=== PATIENT | female | born 1990 | race Caucasian/White ===

== ENCOUNTER 2020-08-21 13:21 | Emergency (ER) | payer OTHER, SELFPAY ==
--- NOTE | ~2020-08-21 | CT_ITS ---
EXAMINATION: CT abdomen pelvis w con DATE: 08/21/2020 20:39 INDICATION: Right lower quadrant abdominal pain TECHNIQUE: Computed tomography (CT) of the abdomen and pelvis was performed with 100 cc Omnipaque 350 intravenous contrast. Automated exposure control and iterative reconstruction technique were employe d. Exam dose: 512.09 mGy-cm total exam DLP. COMPARISON: 03/31/2011 CT abdomen pelvis FINDINGS: The lung bases are clear. Normal heart size. No pericardial or pleural effusion. There are numerous gallstones. Borderline gallbladder wall thickness. No pericholecystic fluid or str anding. No bile duct or pancreatic duct dilatation. No hepatic or pancreatic space-occupying mass lesion. Normal splenic size. Normal morphology of the adrenal glands. No renal mass lesion or urinary tract calculus or hydroureteronephrosis. The urinary bladder is unrem arkable. There is an IUD within the uterus. The uterus and adnexal areas are otherwise are unremarkab le. Normal caliber of the abdominal aorta. No intraperitoneal or retroperitoneal or pelvic mass lesion or adenopathy or ascites. Normal appendix. No bowel obstruction, bowel wall thickening, pneumatosis or intraperitoneal free air . Stable lucent area within the T12 vertebra, unchanged since 03/31/2011 and therefore consistent with benign process. No suspicious osteolytic or osteoblastic lesions. IMPRESSION: Cholelithiasis Normal appendix IUD within uterus Reviewed, dictated and finalized at [facility] Reviewed, dictated and finalized at [facility].
[2020-08-21 14:08] VITALS: BP 116/73; PULSE 103; RESP 18; TEMP 36.6; O2SAT 100
[2020-08-21 14:35] LABS: Basophils Absolute Auto 0.1 K/mm3 (0.0-0.1); Basophils Percent Auto 0.7 % (0.2-1.2); Eosinophils Absolute Auto 0.3 K/mm3 (0-0.3); Eosinophils Percent Auto 3.1 % (0-4.4); Hematocrit 40.2 % (37.0-47.0); Hemoglobin 13.8 g/dL (12.0-15.0); Immature Granulocyte Absolute 0.03 K/mm3 (0.00-0.031); Immature Granulocyte Percent A 0.4 % (0-0.5); Lymphocytes Absolute Auto 2.56 K/mm3 (0.9-3.2); Lymphocytes Percent Auto 30.3 % (18.3-44.2); Mean Corpuscular HGB Conc 34.3 g/dl (32-36); Mean Corpuscular Hemoglobin 32.8 pg (26-34); Mean Corpuscular Volume 95.5 fl (80-100); Mean Platelet Volume 10.2 fl (7.4-10.4); Monocytes Absolute Auto 0.8 K/mm3 (0.1-0.6); Monocytes Percent Auto 8.9 % (2.6-8.5); Neutrophils Absolute Auto 4.8 K/mm3 (1.3-6.7); Neutrophils Percent Auto 56.6 % (45.5-73.1); Platelet Count Result 503 k/mm3 (150-375); Red Blood Count 4.21 M/mm3 (4.2-5.4); Red Cell Distribution Width 12.1 % (11.5-14.5); White Blood Count 8.5 K/mm3 (4.5-10.0)
[2020-08-21 14:48] LABS: Alanine Aminotransferase 12 U/L (4-35); Albumin Level 4.4 g/dL (3.5-5.1); Alkaline Phosphatase 64 U/L (38-126); Anion Gap 5 mmol/L (8-16); Aspartate Amino Transferase 20 U/L (14-36); Bilirubin,Total 0.4 mg/dL (0.2-1.3); Blood Urea Nitrogen 9 mg/dL (7-17); Calcium 9.3 mg/dL (8.4-10.2); Carbon Dioxide 25 mmol/L (22-30); Chloride 109 mmol/L (98-107); Estimated CRCL calculation 144 ml/min; Estimated Glomerular Filt Rate > 60; Glucose 108 mg/dL (65-105); Lipase 51 U/L (23-300); Potassium 3.7 mmol/L (3.4-5.0); Sodium 139 mmol/L (137-145)
[2020-08-21 15:48] LABS: Add Urine Microscopic? YES; Appearance Urine Cloudy (Clear); Bilirubin Urine Negative (Negative); Blood Urine Negative (Negative); Color Urine Yellow (Yellow); Glucose Urine UA Negative (Negative); Ketones Urine Negative (Negative); Leukocyte Esterase Ur Trace LEU/UL (Negative); Nitrate Urine Negative (Negative); Protein Urine Negative (Negative); Specific Grav Ur 1.023 (1.001-1.035)
[2020-08-21 16:11] LABS: Squamous Epithelial Cell Urine Many /hpf (Few); WBC Urine 0-3 /hpf (0-3)
[2020-08-21 16:12] LABS: Bacteria Urine Trace /hpf; Calcium Oxalate Crystals Urine Present /hpf
[2020-08-21 18:48] VITALS: BP 105/72; PULSE 86; RESP 18; TEMP 36.6; O2SAT 100
--- NOTE | 2020-08-21 20:03 | ED.ABDPAIN ---
HPI - Abdominal Pain General Chief Complaint: Abdominal Pain Stated Complaint: ovarian cyst Time Seen by Provider: 08/21/20 18:51 History of Present Illness HPI narrative: Patient is a 29-year-old female who presents ER with right lower quadrant abdominal pain. Patient reports earlier today she had some discomfort that felt like an ovarian cyst rupturing. However she is developed more persistent pain higher up in her abdomen since then. No fevers or chills or sweats. No nausea or vomiting. She is concerned she may have appendicitis. She has no vaginal bleeding or vaginal discharge. She has an IUD and is not concerned about . Has not found any alleviating factors. Pain is worse with movement and palpation. Related Data Allergies Allergy/AdvReac Type Severity Reaction Status Date / Time No Known Allergies Allergy Unverified 12/15/17 05:41 Review of Systems Review of Systems: All systems reviewed & are unremarkable except as noted in HPI and below Constitutional: Constitutional: Denies chills, Denies fever(s) and Denies weakness Cardiovascular: Cardiovascular: Denies chest pain and Denies rapid heart rate Respiratory: Respiratory: Denies cough and Denies dyspnea Gastrointestinal: Gastrointestinal: Reports abdominal pain, Denies constipation, Denies diarrhea, Denies nausea and Denies vomiting Genitourinary: Genitourinary: Denies abnormal vaginal bleeding, Denies nocturia and Denies dysuria PMFSH Past Medical History Medical History (Updated 08/21/20 @ 21:14 by Clifton Naik MD) Hypothyroidism Ovarian cyst Surgical History Surgical History (Updated 08/21/20 @ 20:05 by Clifton Naik MD) No pertinent past surgical history Social History Social History (Updated 08/21/20 @ 20:06 by Clifton Naik MD) Smoking status: Never smoker Exam Narrative: Exam Narrative: GENERAL: Well-appearing, well-nourished, and in no acute distress. HEAD: Normocephalic, atraumatic. CHEST: Clear to auscultation. No respiratory distress. HEART: Regular rate and rhythm. Normal peripheral pulses. ABDOMEN: Soft, tender palpation in the right lower quadrant with mild guarding, nondistended, normal active bowel sounds. EXTREMITIES: Normal range of motion. No edema. SKIN: Warm, dry, no rash. NEURO: Alert and oriented x3. PSYCH: Normal mood and affect. Course Course Emergency Course: Patient informed of results. Resting comfortably. 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 Vital Signs Vital signs: Vital Signs Temperature 97.9 F 08/21/20 14:08 Pulse Rate 103 H 08/21/20 14:08 Respiratory Rate 18 08/21/20 14:08 Blood Pressure 116/73 08/21/20 14:08 Pulse Oximetry 100 08/21/20 14:08 Temperature 97.8 F 08/21/20 18:48 Pulse Rate 86 08/21/20 18:48 Respiratory Rate 18 08/21/20 18:48 Blood Pressure 105/72 08/21/20 18:48 Pulse Oximetry 100 08/21/20 18:48 MDM - Abdominal Pain Lab Data Result diagrams: 08/21/20 14:14 08/21/20 14:14 Labs: Lab Results 08/21/20 08/21/20 08/21/20 Range/Units 14:14 14:14 14:48 WBC 8.5 (4.5-10.0) K/mm3 RBC 4.21 (4.2-5.4) M/mm3 Hgb 13.8 (12.0-15.0) g/dL Hct 40.2 (37.0-47.0) % MCV 95.5 (80-100) fl MCH 32.8 (26-34) pg MCHC 34.3 (32-36) g/dl RDW 12.1 (11.5-14.5) % Plt Count 503 H (150-375) k/mm3 MPV 10.2 (7.4-10.4) fl Immature Gran % (Auto) 0.4 (0-0.5) % Neut % (Auto) 56.6 (45.5-73.1) % Lymph % (Auto) 30.3 (18.3-44.2) % [place] % (Auto) 8.9 H (2.6-8.5) % Eos % (Auto) 3.1 (0-4.4) % Baso % (Auto) 0.7 (0.2-1.2) % Lymph # (Auto) 2.56 (0.9-3.2) K/mm3 [place] # (Auto) 0.8 H (0.1-0.6) K/mm3 Eos # (Auto) 0.3 (0-0.3) K/mm3 Baso # (Auto) 0.1 (0.0-0.1) K/mm3 Abs Immat Gran (auto) 0.03 (0.00-0.031) K/mm3 Absolute Neuts (auto) 4.8 (
[2020-08-21 21:33] VITALS: BP 115/79; PULSE 78; RESP 14; O2SAT 100
== END 2020-08-21 21:31 | disposition home or self-care (01) ==
PROVIDERS: Emergency Provider Emergency Medicine
DX: R10.31 Right lower quadrant pain (principal); E03.9 Hypothyroidism, unspecified; Z97.5 Presence of (intrauterine) contraceptive device
CPT/HCPCS: 36415; 74177; 80053; 81001; 81025; 83690; 85025; 96374; 99284; J0131; Q9967

== ENCOUNTER 2024-01-04 21:39 | Emergency (ER) | payer BC, SELFPAY ==
--- NOTE | ~2024-01-04 | XR_ITS ---
Clinical Indication: Shortness of breath PA and lateral views of the chest: Comparison: 03/07/2016 Findings: The lungs are clear, without evidence of focal consolidation or pleural effusion. Cardiome diastinal silhouette is within normal limits. Bones and soft tissues are unremarkable. Impression: Normal chest. Reviewed, dictated and finalized at location . Impression: Normal chest.
[2024-01-04 21:47] VITALS: BP 121/75; PULSE 85; RESP 15; TEMP 36.5; O2SAT 100
== END 2024-01-05 06:08 | disposition left against medical advice (07) ==
PROVIDERS: Emergency Provider Emergency Medicine; PCP Family Medicine
DX: R06.02 Shortness of breath (principal)
CPT/HCPCS: 71046; 99199

== ENCOUNTER 2024-10-13 07:44 | Emergency (ER) | payer BC, SELFPAY ==
--- NOTE | ~2024-10-13 | XR_ITS ---
EXAMINATION: XR chest 1V portable 10/13/2024 08:35 INDICATION: Dyspnea PROCEDURE: AP portable chest COMPARISON: 01/04/2024 FINDINGS: The lungs are clear. The cardiomediastinal silhouette is within normal limits. There are no pleural effusions. There is no pneumothorax suspected. There is a left nipple ring. IMPRESSION: 1: NO ACUTE CARDIOPULMONARY DISEASE. Reviewed, dictated and finalized at location A.
[2024-10-13 07:43] VITALS: BP 119/62; PULSE 87; RESP 19; TEMP 36.8; O2SAT 99
--- NOTE | 2024-10-13 07:45 | ECG_ITS ---
Test Date: 2024-10-13 07:54:36 Measurements Intervals [place] Rate: 86 P: 26 AK: 137 QRS: 21 QRSD: 86 T: 39 QT: 391 QTc: 469 Interpretive Statements SINUS RHYTHM BASELINE ARTIFACT- I, II, III, AVR, AVL ,AVF, V1-V6 NORMAL ECG No previous ECG available for comparison Electronically Signed On 10-13-2024 08:13:34 CDT by Arturo Esquivel D.O.
[2024-10-13 07:50] VITALS: PULSE 88; O2SAT 99
--- NOTE | 2024-10-13 08:00 | ED_ITS ---
HPI - SOB/Dyspnea General Chief Complaint: Shortness of Breath/Dyspnea Stated Complaint: dyspnea Time Seen by Provider: 10/13/24 07:45 History of Present Illness HPI Narrative: Patient started having pain with deep breaths and some trouble breathing that started around 2 am. Has h/o asthma and uses nebs/inhalers. Has had a cough and some chills and is worried about pneumonia. Related Data Allergies Allergy/AdvReac Type Severity Reaction Status Date / Time No Known Allergies Allergy Unverified 12/15/17 05:41 Review of Systems Review of Systems: All systems reviewed & are unremarkable except as noted in HPI and below PMFSH Past Medical History Medical History (Updated 10/13/24 @ 08:56 by Yolanda Freeman MD) Ovarian cyst Hypothyroidism Surgical History Surgical History (Updated 08/21/20 @ 20:05 by Clifton Naik MD) No pertinent past surgical history Social History Social History (Updated 08/21/20 @ 20:06 by Clifton Naik MD) Smoking status: Never smoker Exam Narrative: EXAMINATION OF ORGAN SYSTEMS/BODY AREAS: Constitutional: Vital signs per nursing GENERAL:[No acute distress, non-toxic appearing.] HEAD: Normal with no signs of head trauma. EYES: EOMI, conjunctiva normal ENT: Hearing grossly intact LUNGS: Nonlabored breathing. Diminished breath sounds HEART: [Regular rate and rhythm] ABD: [Soft], [nontender to palpation] EXT: Normal range of motion SKIN: [No rashes or lesions.] NEURO: [Alert and oriented x 3. No gross focal sensory or strength deficits.] PSYCH: Normal affect Course Vital Signs Vital signs: Vital Signs Temperature 98.2 F 10/13/24 07:43 Pulse Rate 87 10/13/24 07:43 Respiratory Rate 19 10/13/24 07:43 Blood Pressure 119/62 10/13/24 07:43 Pulse Oximetry 99 10/13/24 07:43 Oxygen Delivery Room Air 10/13/24 07:43 Temperature 98.2 F 10/13/24 07:43 Pulse Rate 85 10/13/24 08:32 Respiratory Rate 18 10/13/24 08:32 Blood Pressure 119/62 10/13/24 07:43 Pulse Oximetry 99 10/13/24 07:50 Oxygen Delivery Room Air 10/13/24 07:50 MDM - SOB/Dyspnea MDM Narrative Medical decision making narrative: Patient with history of asthma presents here with shortness of breath and tightness, on exam she is very well-appearing, does have some slightly diminished breath sounds bilaterally, given history I did try DuoNebs and on re- evaluation she feels much better, symptoms completely resolved. She like to go home, chest x-ray on my independent interpretation without any obvious consolidation or pneumothorax, EKG on my independent interpretation shows normal sinus rhythm rate 86, GA 137, QRS 86, QTC 469, no ST elevations or depressions or signs of acute ischemia or arrhythmia. She has states she is out of her albuterol inhaler and that she thinks her DuoNebs are so have refilled these, I have let her know she can always return to the emergency room for any further issues she can follow up with . Discharge Plan Discharge Clinical Impression: Shortness of breath Patient Disposition: Home Condition: Stable Instructions: Asthma (ED) Additional Instructions: Please follow up with your doctor; you can always return for any further issues. Patient Language: Romanian Prescriptions: New albuterol sulfate 90 mcg/actuation HFA aerosol inhaler 2 puff inhalation QID PRN (Reason: shortness of breath or wheezing) Qty: 8.5 0RF ipratropium-albuterol 0.5 mg-3 mg(2.5 mg base)/3 mL solution for nebulization 3 ml inhalation Q6H PRN (Reason: shortness of breath or wheezing) Qty: 90 0RF Follow-up/Referrals: Kandy,William Rushing MD [Primary Care Provider] -
--- OUTSIDE RECORDS SUMMARY | 2024-10-13 08:09 | XMS_ITS | Data Portability ---
Author Organization [facility] [place] Address [address] [place] [address] [place] [address] Assessment Encounter Date Assessment Date Assessment LastModified by Organization Details LastModified Time 08/09/2021 08/09/2021 Annual gynecological exam performed. Patient will come back in a year unless there are new symptoms. [email or web address] Not available 08/09/2021 11:28:38 08/15/2021 08/15/2021 Confirmed allerg y is to generic of synthroid. Rx called in to approve synthroid. She has an apt to f/u with riveter helper at the beginning of September. Patient to call with any issues if they arise. [email or web address] Not available 08/15/2021 18:05:56 Plan of Treatment Reminders Order Date Submit Date Provider Last Modified By Organization Details Last Modified Time Details Appointments None recorded. Lab test, urine 2021 022 [address], [address], [place], [address], 17:39:13 HbA1c (hemoglobi n A1c), blood 2021 022 [facility] (Lab), [address], [place], [address], 03:26:34 CMP, serum or plasma 2021 022 [facility] (Lab), [address], [place], [address], 03:26:32 vitamin D, 25-hydroxy , total, serum 2021 [facility] (Lab), [address], [place], [address], 03:26:33 CBC w/ auto diff 2021 [facility] (Lab), [address], [place], [address], 03:26:32 TSH, serum or plasma 2021 [facility] (Lab), [address], [place], [address], 03:26:33 beta-HCG, quantitati ve, serum or plasma 2021 [facility] (Lab), [address], [place], [address], 03:26:33 Referral None recorded. Procedures None recorded. Surgeries None recorded. Imaging None recorded. Medication Orders None recorded. Patient TargetsNo targets recorded. Patient InstructionsNo instructions recorded. Reason for Referral None Reported. Results Created Date Observation Date Name Description Value Unit Range Abnormal Flag Note LastModifiedBy Organization Detail LastModifiedTime 08/10/19 22 08/09/2021 CBC W/DIF F WBC 9.1 10'3/ uL 3.6-10 .2 Not Available [facility] (Lab) [address], [place], [address], 08/10/2021 03:26:32 08/10/19 22 08/09/2021 CBC W/DIF F RBC 4.00 10'6/ uL (based on docume nted legal sex) 4.10-5 .30 low Not Available [facility] (Lab) [address] [place], [address], 08/10/2021 03:26:32 08/10/19 22 08/09/2021 CBC W/DIF F HGB 12.4 g/dL (based on docume nted legal sex) 11.9-1 5.8 Not Available [facility] (Lab) [address], [place], [address], 08/10/2021 03:26:32 08/10/19 22 08/09/2021 CBC W/DIF F HCT 39.1 % (based on docume nted legal sex) 37.4-4 8.3 Not Available [facility] (Lab) [address], [place], [address], 08/10/2021 03:26:32 08/10/19 22 08/09/2021 CBC W/DIF F MCV 98.0 fL 82.0-9 9.0 Not Available [facility] (Lab) [address], [place], [address], 08/10/2021 03:26:32 08/10/19 22 08/09/2021 CBC W/DIF F MCH 31.0 pg 27.0-3 3.0 Not Available [facility] (Lab) [address], [place], [address], 08/10/2021 03:26:32 08/10/19 22 08/09/2021 CBC W/DIF F MCHC 32.0 g/dL 32.0-3 6.0 Not Available [facility] (Lab) [address], [place], [address], 08/10/2021 03:26:32 08/10/19 22 08/09/2021 CBC W/DIF F RDW 12.0 % 11.0-1 5.0 Not Available [facility] (Lab) [address], [place], [address], 08/10/2021 03:26:32 08/10/19 22 08/09/2021 CBC W/DIF F plt 483 10'3/ uL 150-45 0 high Not Available [facility] (Lab) [address], [place], [address], 08/10/2021 03:26:32 08/10/19 22 08/09/2021 CBC W/DIF F MPV 10.3 fL 9.8-12 .7 Not Available [facility] (Lab) [address], [place], [address], 08/10/2021 03:26:32 08/10/19 22 08/09/2021 CBC W/DIF F NRBC's 0.00 % 0 Not Available [facility] (Lab) [address], [place], [address], 08/10/2021 03:26:32 08/10/19 22 08/09/2021 CBC W/DIF F absolute NRBCs 0.0 10'3/ uL 0 Not Available [facility] (Lab) [address], [place], [address], 08/10/2021 03:26:32 08/10/19 22 08/09/2021 CBC W/DIF F neutrophils 56.0 % 37.0-7 2.0 Not Available [facility] (Lab) [address], [place], [address], 08/10/2021 03:26:32 08/10/19 22 08/09/2021 CBC W/DIF F lymphocytes 31.0 % 16.0-4 8.0 Not Available [facility] (Lab) [address], [place], [address], 08/10/2021 03:26:32 08/10/19 22 08/09/2021 CBC W/DIF F monocytes 10.0 % 4.0-14 .0 Not Available [facility] (Lab) [address], [place], [address], 08/10/2021 03:26:32 08/10/19 22 08/09/2021 CBC W/DIF F eosinophils 2.0 % 0.0-9. 0 Not Available [facility] (Lab) [address], [place], [address], 08/10/2021 03:26:32 08/10/19 22 08/09/2021 CBC W/DIF F basophils 1.0 % 0.0-2. 0 Not Available [facility] (Lab) [address], [place], [address], 08/10/2021 03:26:32 08/10/19 22 08/09/2021 CBC W/DIF F immature granulocytes 0.0 % no define d refere nce range Not Available [facility] (Lab) [address], [place], [address], 08/10/2021 03:26:32 08/10/19 22 08/09/2021 CBC W/DIF F absolute neutrophils 5.1 10'3/ uL 1.1-6. 0 Not Available [facility] (Lab) [address], [place], [address], 08/10/2021 03:26:32 08/10/19 22 08/09/2021 CBC W/DIF F absolute lymphocytes 2.8 10'3/ uL 0.7-3. 4 Not Available [facility] (Lab) [address], [place], [address], 08/10/2021 03:26:32 08/10/19 22 08/09/2021 CBC W/DIF F absolute monocytes 0.9 10'3/ uL 0.3-1. 0 Not Available [facility] (Lab) [address], [place], [address], 08/10/2021 03:26:32 08/10/19 22 08/09/2021 CBC W/DIF F absolute eosinophils 0.2 10'3/ uL 0.0-0. 6 Not Available [facility] (Lab) [address], [place], [address], 08/10/2021 03:26:32 08/10/19 22 08/09/2021 CBC W/DIF F absolute basophils 0.1 10'3/ uL 0.0-0. 1 Not Available [facility] (Lab) [address], [place], [address], 08/10/2021 03:26:32 08/10/19 22 08/09/2021 CBC W/DIF F absolute immature granulocytes 0.00 10'3/ uL 0.00-0 .10 022 1:15 AM: P indic ates parti al resul ts on a panel have been relea sed. Addit ional resul ts will follo w. 022 1:15 AM: This resul t has been final verif ied. No addit ional or brunner ed resul ts are expec jelena. Not Available [facility] (Lab) [address], [place], [address], 08/10/2021 03:26:32 08/10/19 22 08/09/2021 CMP(C OMPRE HENSI VE METAB OLIC PANEL ) sodium 139 mmol/ L 133-14 6 Not Available [facility] (Lab) [address], [place], [address], 08/10/2021 03:26:32 08/10/19 22 08/09/2021 CMP(C OMPRE HENSI VE METAB OLIC PANEL ) potassium 4.4 mmol/ L 3.5-5. 1 Not Available [facility] (Lab) [address], [place], [address], 08/10/2021 03:26:32 08/10/19 22 08/09/2021 CMP(C OMPRE HENSI VE METAB OLIC PANEL ) chloride 102 mmol/ L 98-107 Not Available [facility] (Lab) [address], [place], [address], 08/10/2021 03:26:32 08/10/19 22 08/09/2021 CMP(C OMPRE HENSI VE METAB OLIC PANEL ) carbon dioxide 28 mmol/ L 21-31 Not Available [facility] (Lab) [address], [place], [address], 08/10/2021 03:26:32 08/10/19 22 08/09/2021 CMP(C OMPRE HENSI VE METAB OLIC PANEL ) anion gap 9 mmol/ L 4-13 Not Available [facility] (Lab) [address], [place], [address], 08/10/2021 03:26:32 08/10/19 22 08/09/2021 CMP(C OMPRE HENSI VE METAB OLIC PANEL ) blood urea nitrogen 12 mg/dL 7-25 Not Available [facility] (Lab) [address], [place], [address], 08/10/2021 03:26:32 08/10/19 22 08/09/2021 CMP(C OMPRE HENSI VE METAB OLIC PANEL ) creatinine 0.59 mg/dL 0.60-1 .30 low Not Available [facility] (Lab) [address], [place], [address], 08/10/2021 03:26:32 08/10/19 22 08/09/2021 CMP(C OMPRE HENSI VE METAB OLIC PANEL ) egfrcr (CKD-epi 2020) >90 mL/mi n/1.7 3_m2 >=60 Not Available [facility] (Lab) [address], [place], [address], 08/10/2021 03:26:32 08/10/19 22 08/09/2021 CMP(C OMPRE HENSI VE METAB OLIC PANEL ) calcium 8.9 mg/dL 8.3-10 .5 Not Available [facility] (Lab) [address], [place], [address], 08/10/2021 03:26:32 08/10/19 22 08/09/2021 CMP(C OMPRE HENSI VE METAB OLIC PANEL ) glucose 61 mg/dL 70-100 low Not Available [facility] (Lab) [address], [place], [address], 08/10/2021 03:26:32 08/10/19 22 08/09/2021 CMP(C OMPRE HENSI VE METAB OLIC PANEL ) protein, total 6.7 g/dL 6.4-8. 3 Not Available [facility] (Lab) [address], [place], [address], 08/10/2021 03:26:32 08/10/19 22 08/09/2021 CMP(C OMPRE HENSI VE METAB OLIC PANEL ) albumin 4.6 g/dL 3.5-5. 0 Not Available [facility] (Lab) [address], [place], [address], 08/10/2021 03:26:32 08/10/19 22 08/09/2021 CMP(C OMPRE HENSI VE METAB OLIC PANEL ) ALT 7 units /L 9-43 low Not Available [facility] (Lab) [address], [place], [address], 08/10/2021 03:26:32 08/10/19 22 08/09/2021 CMP(C OMPRE HENSI VE METAB OLIC PANEL ) alkaline phosphatase 62 units /L 34-104 Not Available [facility] (Lab) [address], [place], [address], 08/10/2021 03:26:32 08/10/19 22 08/09/2021 CMP(C OMPRE HENSI VE METAB OLIC PANEL ) AST 9 units /L 13-39 low Not Available [facility] (Lab) [address], [place], [address], 08/10/2021 03:26:32 08/10/19 22 08/09/2021 CMP(C OMPRE HENSI VE METAB OLIC PANEL ) bilirubin, total 0.5 mg/dL 0.2-1. 2 Not Available [facility] (Lab) [address], [place], [address], 08/10/2021 03:26:32 08/10/19 22 08/09/2021 TSH, REFLE X FREE T4 TSH 14.65 uIU/m L 0.30-5 .33 high Not Available [facility] (Lab) [address], [place], [address], 08/10/2021 03:26:33 08/10/19 22 08/09/2021 BHCG, QUANT ITATI VE B-HCG <0.2 mIU/m L This assay was perfo rmed using [employer] ratio n reage nts and test kits. Value s obtai samantha with other assay metho ds or kits canno t be used inter brunner eably . Refer ence Range s: Non-p regna nt, preme nopau katiana women : 0.0-5 .3 mIU/m L Postm enopa usal women : 0.0-7 .0 mIU/m L Nazanin l Pregn jae: Gesta mukesh l Age bHCG Conc. - mIU/m L 3 Weeks 5.8 - 71.7 4 Weeks 9.5 - 750 5 Weeks 217-7 138 6 Weeks 158 - 31,79 5 7 Weeks 3,697 - 162,5 63 8 Weeks 32,06 5 - 149,5 71 9 Weeks 63,80 3 - 151,4 10 10 Weeks 46,50 9 - 186,9 77 12 Weeks 27,83 2 - 210,6 12 14 Weeks 13,95 0 - 62,53 0 15 Weeks 12,03 9 - 70,97 1 16 Weeks 9,040 - 56,45 1 17 Weeks 8,175 - 55,86 8 18 Weeks 8,099 - 58,17 6 Not Available [facility] (Lab) [address], [place], [address], 08/10/2021 03:26:33 08/10/19 22 08/09/2021 VITAM IN D, 25-OH (TOTA L D2/D3 ) vitamin D, 25-hydroxy, total 10.9 NG/mL 30-80 low NOTE: Defic iency : <20 ng/mL Insuf ficie ncy: 20-29 ng/mL Optim um Level : 30-80 ng/mL Possi ble Toxic ity: >80 ng/mL Most patie nts with toxic ity have level s >150 ng/mL . Not Available [facility] (Lab) [address], [place], [address], 08/10/2021 03:26:33 08/10/19 22 08/09/2021 HEMOG LOBIN A1C hemoglobin A1C 5.0 % 0-5.6 The Ameri can Diabe pat Assoc iatio n recom mends that a prima ry goal of thera py shoul d be a HBA1C of < 7% and that physi cians shoul d reeva luate the treat ment regim en in patie nts with HBA1C value s consi stent ly > 8%. <5.7% Nazanin l 5.7 - 6.4% Incre ased risk for diabe pat >=6.5 % Diagn ostic of diabe pat <7.0% Goal of thera py >8.0% Actio n sugge sted Not Available [facility] (Lab) [address], [place], [address], 08/10/2021 03:26:34 08/10/19 22 08/09/2021 T4 FREE T4, free 0.64 NG/dL 0.60-1 .40 Not Available [facility] (Lab) [address], [place], [address], 08/10/2021 03:36:33 08/10/19 22 08/09/2021 IMAGE GUIDE D PAP AND HPV REGAR DLESS image guided Pap, HPV regardless of Pap result SEE RESULT S BELOW CASE REPOR T: Cytol ogy Gynec ologi letty Repor t Case: [id number] Autho florian odell Provi dickson: Ajay Navarrete Colle cted: 08/09 1442 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 Elect arabella alonso collins d by Raisa Anderson ed, CT on 022 at 11:20 PM ----- ----- ----- ----- ----- ----- ----- ----- ----- ----- ----- ----- ----- ----- ----- ----- ----- ---- HPV RESUL TS: HPV mRNA E6/E7 : No HPV mRNA Detec jelena NOTE: This high risk HPV mRNA assay detec ts fourt een high- risk HPV types (16, 18, 31, 33, 35, 39, 45, 51, 52, 56, 58, 59, 66, 68) witho ut diffe renti ation . COMME NT: Note: This speci men was revie wed by a Cytot echno logis t and/o r Patho logis t (as indic ated in this repor t) after evalu ation using the Thinp rep Imagi ng Syste m. CLINI LETTY INFOR MATIO N: Menst rual Statu s: LMP (if appli cable ): Clini letty Histo ry/Pr eviou s Pap: Type of Neopl johanna (if appli cable ): Signi fican t Clini letty Findi ngs: Other Histo ry: Hormo reba (if appli cable ): PAP EDUCA MUKESH L NOTE: The Pap Test is a scree mick test with an inher ent false negat nica rate. Liqui d-bas ed sampl ing may decre ase, but will not elimi annabel, false negat nica resul ts. A negat nica resul t does not precl ude the prese nce and/o r devel opmen t of disea se, since the prese nce of abnor mal cells in the sampl e depen ds on the locat ion of the lesio n and sampl ing techn ique. Geoffrey nued regul ar scree mick is the best metho d of cance r preve ntion . If repor jelena cytol ogic findi ng do not corre late with physi letty and/o r histo rical findi ngs, todd simmons guillermo baptiste is recom modesta d, as clini ugo carrero nted. Not Available [facility] (Lab) [address], [place], [address], 08/17/2021 00:23:51 08/10/19 22 08/09/2021 TRICH OMONA S VAGIN KYLER (RRNA ) trichomonas vaginalis ribosomal RNA (rrna) Negati ve negati ve Not Available [facility] (Lab) [address], [place], [address], 08/17/2021 00:23:52 08/10/19 22 08/09/2021 CT/GC (ELLEN) , THINP REP VIAL chlamydia trachomatis, PCR Negati ve negati ve Not Available [facility] (Lab) [address], [place], [address], 08/17/2021 00:23:52 08/10/19 22 08/09/2021 CT/GC (ELLEN) , THINP REP VIAL neisseria gonorrhoeae, PCR Negati ve negati ve Not Available [facility] (Lab) [address], [place], [address], 08/17/2021 00:23:52 08/16/19 22 08/15/2021 pregn jae test, urine HCG negati ve Not Available [place] [address], [place], [address], 08/15/2021 17:38:59 Result Notes None recorded. Problems Name Problem SNOMED Code Status Onset Date Resolution Date Notes Provider Name and Address Organization Details Recorded Time Speciali clari medical examinat ion Completed 201008/09/2021 Gynecolog ical Examinati on;Record ed Elsewhere : No Locati on: [facility] So urce: EHR Chron ic: N Practic e ID: [id number] Bill able Time: 01:30:00 PM Janet nguyen, [facility] 2 10:59:06 Overweig ht [id number] Completed 201408/09/2021 Overweigh t;Recorde d Elsewhere : No Locati on: [facility] So urce: EHR Chron ic: N Practic e ID: [id number] Bill able Time: 11:30:00 AM Janet Cole [facility] 2 10:59:06 Family planning surveill ance Completed 201008/09/2021 Contracep tive surveilla nce, unspecifi ed;Record ed Elsewhere : No Locati on: [facility] So urce: EHR Chron ic: N Practic e ID: [id number] Bill able Time: 02:30:00 PM Janet Cole [facility] 2 10:59:06 Adult health examinat ion Completed 201408/09/2021 ROUTINE MEDICAL EXAM;Krish rded Elsewhere : No Locati on: [facility] So urce: EHR Chron ic: N Practic e ID: [id number] Bill able Time: 11:30:00 AM Janet Cole [facility] 2 10:59:06 Female genital organ symptoms [id number] Completed 201208/09/2021 Unspecifi ed symptom associate d with female genital organs;Re corded Elsewhere : No Locati on: [facility] So urce: EHR Chron ic: N Practic e ID: [id number] Bill able Time: 11:30:00 AM Janet Cole [facility] 2 10:59:06 Cervical intraepi thelial neoplasi a grade 1 [id number] Completed 201008/09/2021 Mild dysplasia of cervix;Re corded Elsewhere : No Locati on: [facility] So urce: EHR Chron ic: N Practic e ID: [id number] Bill able Time: 11:30:00 AM Janet Cole [facility] 2 10:59:06 Insertio n of intraute rine contrace ptive device Completed 201008/09/2021 INSERTION OF IUD;Recor ded Elsewhere : No Locati on: [facility] So urce: EHR Chron ic: N Practic e ID: [id number] Bill able Time: 01:45:[address] [facility] [address] 10:59:[address] Concept Completed 201708/09/2021 Encntr for general adult medical exam w/o abnormal findings; Recorded Elsewhere : No Locati on: [facility] So urce: EHR Chron ic: N Practic e ID: 0001 Bill able Time: 02:30:[address] [facility] 2 10:59:06 Microsco pic hematuri a [id number] Completed 201308/09/2021 MICROSCOP IC HEMATURIA ;Recorded Elsewhere : No Locati on: [facility] So urce: EHR Chron ic: N Practic e ID: [id number] Bill able Time: 10:00:[address] [facility] 2 10:59:06 Dysfunct ional uterine bleeding Completed 201108/09/2021 Other disorders of menstruat ion and other abnormal bleeding from female genital tract;Rec orded Elsewhere : No Locati on: [facility] So urce: EHR Chron ic: N Practic e ID: [id number] Bill able Time: 09:45:[address] [facility] 2 10:59:06 Screenin g for malignan t neoplasm of cervix Completed 201008/09/2021 Screening for malignant neoplasms of the cervix;Re corded Elsewhere : No Locati on: [facility] So urce: EHR Chron ic: N Practic e ID: 0001 Bill able Time: 01:30:[address] [facility] 2 10:59:06 Pregnanc y test negative [id number] Completed 201008/09/2021 examinati on or test, negative result;Re corded Elsewhere : No Locati on: [facility] So urce: EHR Chron ic: N Practic e ID: [id number] Bill able Time: 01:30:00 PM Janet nguyen [facility] 2 10:59:06 Abdomina l pain [id number] Completed 201208/09/2021 Abdominal pain, other specified site;Krish rded Elsewhere : No Locati on: [facility] So urce: EHR Chron ic: N Practic e ID: [id number] Bill able Time: 11:15:00 AM Janet [facility] 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 2 10:59:06 Urinary tract infectio us disease [id number] Completed 201308/09/2021 Urinary tract infection , site not specified ;Practice ID: [id number] Janet Cole [facility] 2 10:59:06 Problem Notes None recorded. Procedures Surgical History Date Name Laterality Status Provider Name and Address Organization Details Recorded Time 2 IUD Removal completed CATHERINE Herbert [address], [place], [address], [place] [facility] 08/15/2021 18:01:56 2 IUD Insertion completed CATHERINE Herbert [address], [place], [address], [facility] 08/15/2021 18:00:58 Imaging Results None recorded. Procedure Notes None recorded. Medical Equipment None Reported. Allergies Allergen ID Allergen Name Allergen Category Reaction Reaction Severity Criticality Documentation Date Start Date Code Code System Note Provider Name and Address Organization Details Recorded Time 9995 levothyro xine sodium medicatio n dizziness Not available Not available 04/28/2020 82773 RxNorm visio n distu rbanc irving Gonzales [facility] 2 18:08:59 Medications Name Sig Start Date Stop Date Status Note LastModified by Organization Details LastModified Time Synthroid 100 mcg tablet take 1 tablet by oral route every day 11/06 completed Prescrib ed Elsewher e: No Locat ion: [facility] odify By: jaylyn burrowsunter DateTime : 04/18/20 14 04:00:00 PM Not Available Not Available Not Available Metrogel Vaginal 0.75 % (37.5 mg/5 gram) insert 1 applicat orful (37.5MG) by vaginal route every day for 5 days at bedtime 08/17 completed Prescrib ed Elsewher e: No Locat ion: [facility] odify By: [email or web address] Encount er DateTime : 08/14/19 14 09:45:46 AM Not Available Not Available Not Available Synthroid 75 mcg tablet take 1 tablet (75MCG) by oral route every day 04/18 completed Prescrib ed Elsewher e: No Locat ion: [facility] odify By: jaylyn burrowsunter DateTime : 02/27/20 11 01:30:00 PM Not Available Not Available Not Available Synthroid 50 mcg tablet Take 1 tablet every day by oral route for 90 days. 2021 active Not Available Not Available Not Avai lable ergocalci ferol (vitamin D2) 1,250 mcg (50,000 unit) capsule TAKE 1 CAPSULE BY MOUTH EVERY WEEK active Not Available Not Available No t Available NuvaRing 0.12 mg-0.015 mg/24 hr vaginal insert 1 vaginal ring by vaginal route every month leave in place for 3 weeks, remove for 1 week 08/09 completed Prescrib ed Elsewher e: No Locat ion: Claudette villatoro [facility] odify By: amkuhl E ramana DateTime : 07/23/19 12 09:45:00 AM Not Available Not Available Not Available JEREL (28) 3 mg-0.02 mg tablet TAKE 1 TABLET BY ORAL ROUTE EVERY DAY 08/10 completed Prescrib alannah Joyner e: No Locat ion: [facility] irving [facility] odify By: stewart sandhu DateTime : 10/06/19 04:03:50 PM Not Available Not Available Not Available Vitals Date Recorded Body height Body mass index (BMI) Body weight Systolic blood pressure Diastolic blood pressure Provider Name and Address Organization Details Last Updated DateTime 08/09/2021 163.2 cm 27.9 kg/m2 15178.15 g 120 mm[Hg] 74 mm[Hg] [facility] 11:29:46 Date Recorded Body height Body mass index (BMI) Body weight Systolic blood pressure Diastolic blood pressure Provider Name and Address Organization Details Last Updated DateTime 08/15/2021 163.2 cm 27.9 kg/m2 56572.15 g 122 mm[Hg] 74 mm[Hg] [facility] 17:37:14 Social History Question Answer Notes LastModified by Organizat ion Details LastModified Time Tobacco Smoking Status Current Every Day Smoker [facility] 08/09/2021 11:13:53 Are You Blind Or Do You Have Difficulty Seeing? No Information not available 08/09/2021 What Is Your Level Of Caffeine Consumption? Occasional Information not available 08/09/2021 Are You Deaf Or Do You Have Serious Difficulty Hearing? No Information not available 08/09/2021 What Type Of Diet Are You Following? REGULAR Information not available 08/09/2021 Do You Use Your Seat Belt Or Car Seat Routinely? Yes Information not available 08/09/2021 Do You Have Smoke And Carbon Monoxide Detectors In Your Home? Yes Information not available 08/09/2021 Do You Use Sunscreen Routinely? Yes Information not available 08/09/2021 Do You Have Difficulty Walking Or Climbing Stairs? No Information not available 08/09/2021 Sex: Unknown Functional Status Question Answer Note LastModified by Organizat ion Details LastModified Time Do you use any illicit or recreational drugs? No Information not available 08/09/2021 What is your level of alcohol consumption? Occasional Information not available 08/09/2021 Are you able to walk? YESWOREST Information not available 08/09/2021 Are you able to care for yourself? Yes Information n ot available 08/09/2021 Do you have difficulty dressing or bathing? No Information not available 08/09/2021 What is your exercise level? Occasional Information not available 08/09/2021 Mental Status Question Answer Note LastModified by Organization D etails LastModified Time Do you feel stressed (tense, restless, nervous, or anxious, or unable to sleep at night)? [id number] Information not available 08/09/2021 Family History Relationship Description Onset Age of this Age Resolved Age Notes LastModified by Organization Details LastModified Time Maternal Grandfather Hypercholest erolemia Not available 2021 11:09:17 Maternal Grandfather Hypertensive disorder Not available 2021 11:09:27 Maternal Grandfather Diabetes mellitus Not available 2021 11:09:35 Maternal Grandfather Heart disease Not available 2021 11:09:45 Maternal Grandmother Disorder of thyroid gland Not available 2021 11:12:28 Maternal Grandmother Heart disease Not available 2021 11:12:35 Maternal Grandmother Hypertensive disorder Not available 2021 11:12:43 Maternal Grandmother Asthma Not available 2021 11:12:53 Mother Hypertensive disorder Not available 2021 11:13:00 Medical History Condition Response Other Y Thyroid Problems Y Anemia Y Gynecological History Statement/Question Response Abnormal Pap Y Sexually Active? Y STIs/STDs N Age of first menstrual cycle 14 HPV Vaccine Y Date of Last Pap Smear Sexual Problems? N Current Control Method IUD LMP Unknown Obstetrics History GPAL:G 0 P 0 0 0 0 Type Value Living 0 Total 0 Past Encounters Encounter ID Performer Location Encounter Start Date Encounter Closed Date Diagnosis/Indication Diagnosis SNOMED-CT Code Diagnosis ICD10 Code Diagnosis Note [id number] Elba Clayton , [facility] [address] [address] 08/09/2021 11:02:55 08/09/2021 12:04:23 Gynecologic examination 83946838 Z01.419 Take Calcium with Vitamin D 1200mg daily if not receiving in daily diet. It is strongly advised to have an annual flu shot and up can obtain at most pharmacies . If you have not had a TDap shot in the last 10 years you should obtain one as well. Discussed with patient & provided with informatio n regarding Gardisil vaccine to prevent the 4 strains for HPV that cause cervical cancer if under age 26. Encourage safe sexual practices, to use condoms and limit partners if not already in a monogamous relationsh ip. Do monthly self breast exams. Have mammogram yearly or every other year depending on family history. BRCA testing is now available for patients with strong genetic history of female cancer. If interested contact the office. Engage in daily exercise of low impact aerobic exercise 45-60 minutes 4-5 times weekly. Avoid tobacco and illicit drugs as well as using moderation with alcohol intake less than 1-2 8 oz beverages daily. This lifestyle behavior pattern will lead to less health conditions and longer life span. If BMI greater than 25 weight watchers or dietary consult advised. Patient received above instructio ns, and questions have been answered. If you have any questions please call or respond to this email. Patient was made aware of the patient portal and may obtain a paper copy of today's plan if desired. Pap/hpv sentSTD Screen sent Genetic Screen discussed Colon Screen na Dexa Screen na Routine Labs orderedMam mo na Contracept ion care management 921443456 Z30.9 Discussed IUD removal/re insertionS he will abstain & will complete labs then return for blood draw HCG to have IUD procedure completed. Aware to check her insurance regarding this device. Adult heal th examination [id number] Z00.00 Will restart thyroid medication once we have her updated TSH levels. [id number] Elba Clayton , [facility] [address] [address] 08/15/2021 17:21:40 08/15/2021 18:41:36 Screening procedure 40098732 Z13.9 Insertion of intrauterine contraceptive device [id number] Z30.430 See procedure noteRTC in 6 weeks for IUD string check. She has been counseled on all of the r/b/a of placement of an intrauteri ne device that include but are not limited to uterine perforatio n, injury to cervix, vagina, bladder, and bowel.Risk s of bleeding due to injury or increased irregular bleeding due to progestin effect of the device. Risks of infection would be increased within the first 21 days of placement with concommita nt cervicitis . She understand s that the device will need to be removed in this instance due to increased risk of Pelvic inflammato ry disease. Patient is aware she is at higher risk for STD and if contracted she could lose her fertility. Pt is aware that if occurs that she should contact office immediatel y to rule out ectopic which could be life threatenin g. IUD will also need to be removed and this could cause miscarriag e. Patient also informed that in the event her strings are absent or embedded at the time of removal she may need to have the IUD surgically removed. She was informed of the above and properly consented. IUD placed w/o complicati on. Patient should return to office after next period to check for string placement. Patient to expect irregular bleeding but should be seen in the ED if bleeding increases to soaking a pad an hour for at least 2 hours. She verbalized understand ing. Removal of intrauterine device [id number] Z30.432 IUD removed without difficulty or immediate complicati on. Health Concerns Section Related Observation LastModified by Organization Detai ls LastModified Time None Recorded Concern Status LastModified by Organization Details LastModified Time None Recorded Advance Directives Directive None Recorded Payers Encounter Date Sequence Insurance Name Policy Number Policy De Jesus Covered Member ID De Jesus Member ID Guarantor Name 08/09/2021 1 [employer] [id number] Arlette Tran [id number] Arlette Tran 08/15/2021 1 [employer] [id number] Arlette العلي Marc [id number] Arlette Severiano Marc Notes Date Note Type Note Provider Name and Address Organization Details Recorded Time 08/09/2021 text/html Annual GYNReport ed bypatient.History: no gynecologic complaints Menstrual cycle:Normal menses (amenorrheic on IUD mirena) Urinary symptoms:No hematuria; No incontinence Vulva:No genital lesion Vagina:Normal vaginal discharge Breast:No breast pain; No breast lump; No nipple discharge Current Contraception:Sati sfied with current contraception; Monogamous relationship; Intrauterine device (iud); Condoms Sexual complaints:No sexual complaints; No pain during intercourse; Normal libido Menopausal Symptoms:No menopausal symptoms; Normal vaginal lubrication Psychological symptoms:No depression; No anxiety; No PMDD Preventive measures:Encourage self breast examination; Encourage regular exercise; Encourage no tobacco use; Encourage regular mammograms starting age 40; Followed with Q3 year pap smear and high risk HPV typing [facility]ba Clayton [facility] [address], [place], [address], [facility] 08/09/2021 11:59:47 08/15/2021 text/html Patient presents for IUD removal/ insertion.Doing well with Mirena IUD, desires new one to be placed today [facility] [address], [place], [address], [facility] 08/15/2021 18:13:28 OBGyn Episode No OBEpisode recorded.
--- OUTSIDE RECORDS SUMMARY | 2024-10-13 08:09 | XMS_ITS | Clinical Summary ---
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 Gender Identity Not on file Sexual Orientation Not on file Plan of Treatment Health Maintenance Due Date Last Done Comments Hepatitis C Virus (HCV) Screening 1989 TdaP Immunization 1989 Hepatitis B Immunization (1 of 3 - 19+ 3-dose series) 2008 Pap Smear 2010 Cervical Cancer Screening (CCS) 09/28/2019 HPV/Cotest 09/28/2019 Influenza Immunization (#1) 2024 SARS-COV-2 Immunization ( season) 2024 Respiratory Syncytial Virus (RSV) Immunization (Adult) (1 - 1-dose 75+ series) 2064 Meningococcal Immunization (ACWY) Aged Out No longer eligible based on patient's age to complete this topic Pneumococcal Immunization Combined Aged Out No longer eligible based on patient's age to complete this topic Rotavirus Immunization Aged Out No lo nger eligible based on patient's age to complete this topic
[2024-10-13 08:23] VITALS: PULSE 84; RESP 18
[2024-10-13] MEDS: IPRATROPIUM 0.5 MG/ALBUTEROL SULFATE 2.5 MG AMPUL.NEB 3 ML INHALATION (08:24)
[2024-10-13 08:32] VITALS: PULSE 85; RESP 18
[2024-10-13 09:20] VITALS: BP 110/71; PULSE 100; RESP 18; O2SAT 97
== END 2024-10-13 09:22 | disposition home or self-care (01) ==
PROVIDERS: Emergency Provider Emergency Medicine; PCP Family Medicine
DX: R06.02 Shortness of breath (principal); E03.9 Hypothyroidism, unspecified
CPT/HCPCS: 71045; 93005; 94640; 99284